=== PATIENT | male | born 1985 | race Native Hawaiian/Other Pacific Islander ===

== ENCOUNTER 2021-07-22 07:10 | Emergency (ER) | payer OTHER ==
[~2021-07-22] VITALS: Ht 175.3 cm; Wt 90.7 kg
[2021-07-22 07:19] VITALS: BP 152/84; TEMP 97.5
== END 2021-07-22 07:50 | disposition home or self-care (01) ==
LOC: ED 07:10
DX: K04.7 Periapical abscess without sinus (principal)
CPT/HCPCS: 99282

== ENCOUNTER 2021-09-21 19:45 | Emergency (ER) | payer OTHER ==
[~2021-09-21] VITALS: Ht 175.3 cm; Wt 83.9 kg
[2021-09-21 19:52] VITALS: TEMP 97.6
[2021-09-21 20:52] VITALS: BP 125/82
== END 2021-09-21 20:58 | disposition home or self-care (01) ==
LOC: ED 19:45
DX: K02.9 Dental caries, unspecified (principal)
CPT/HCPCS: 96372; 99283; J1885; J3490

== ENCOUNTER 2021-12-04 10:49 | Emergency (ER) | payer OTHER ==
[~2021-12-04] VITALS: Ht 175.3 cm; Wt 90.7 kg
[2021-12-04 10:52] VITALS: TEMP 99.6
[2021-12-04 11:43] VITALS: BP 148/79
== END 2021-12-04 11:43 | disposition home or self-care (01) ==
LOC: ED 10:49
DX: K02.9 Dental caries, unspecified (principal); K08.89 Other specified disorders of teeth and supporting structures
CPT/HCPCS: 99282

== ENCOUNTER 2022-01-24 15:07 | Emergency (ER) | payer OTHER ==
[~2022-01-24] VITALS: Ht 175.3 cm; Wt 90.7 kg
[2022-01-24 15:10] VITALS: TEMP 98
[2022-01-24 16:20] VITALS: BP 142/84
== END 2022-01-24 16:20 | disposition home or self-care (01) ==
LOC: ED 15:07
PROC: 2W2CX4Z Dressing of Right Lower Arm using Bandage (ICD-10-PCS; principal; 2022-01-24)
DX: T22.211A Burn of second degree of right forearm, initial encounter (principal); T31.0 Burns involving less than 10% of body surface; X08.8XXA Exposure to other specified smoke, fire and flames, initial encounter; Y93.G2 Activity, grilling and smoking food; Y92.89 Other specified places as the place of occurrence of the external cause
CPT/HCPCS: 96372; 99283; J1885; J2270; J2405

== ENCOUNTER 2022-03-09 19:18 | Emergency (ER) | payer OTHER ==
[~2022-03-09] VITALS: Ht 175.3 cm; Wt 90.7 kg
[2022-03-09 19:20] VITALS: BP 130/82; TEMP 97.3
== END 2022-03-09 19:48 | disposition home or self-care (01) ==
LOC: ED 19:18
DX: K02.9 Dental caries, unspecified (principal)
CPT/HCPCS: 99282

== ENCOUNTER 2022-08-03 17:39 | Emergency (ER) | payer OTHER ==
[~2022-08-03] VITALS: Ht 175.3 cm; Wt 83.9 kg
[2022-08-03 17:45] VITALS: BP 148/85; TEMP 98
== END 2022-08-03 18:50 | disposition home or self-care (01) ==
LOC: ED 17:39
DX: S39.011A Strain of muscle, fascia and tendon of abdomen, initial encounter (principal); X50.0XXA Overexertion from strenuous movement or load, initial encounter; Y92.89 Other specified places as the place of occurrence of the external cause
CPT/HCPCS: 96372; 99282; J1885

== ENCOUNTER 2022-10-03 18:38 | Emergency (ER) | payer OTHER ==
[~2022-10-03] VITALS: Ht 175.3 cm; Wt 83.9 kg
[2022-10-03 18:43] VITALS: BP 110/80; TEMP 99.2
== END 2022-10-03 19:47 | disposition home or self-care (01) ==
LOC: ED 18:38
DX: K40.90 Unilateral inguinal hernia, without obstruction or gangrene, not specified as recurrent (principal)
CPT/HCPCS: 96372; 99283; J1885